=== PATIENT | female | born 1945 | race African-American/Black ===

== ENCOUNTER 2016-09-06 17:23 | Inpatient (IN) | payer MEDICARE, OTHER ==
[~2016-09-06] VITALS: Ht 152.4 cm; Wt 128.0 kg
[~2016-09-06 17:23] MED LIST: AMLODIPINE BESY10 MG ORAL; ATROVENT30 ML NASAL; BENADRYL50 MG ORAL; BENTYL10 MG ORAL; CALCIUM 1,0001 EAC1 PO; CARVEDILOL12.5 MG ORAL; FUROSEMIDE40 MG ORAL; KENALOG 0.1% CR15 GM APPLIC; LANTUS5 UNITS SUBQ; LOMOTIL TABLET1 EAC1 PO; NITROSTAT0.4 M1 SL; NOVOLOG100 UNIT/3 SUBQ; PRAVASTATIN SOD40 M1 ORAL; PREPARATION H1 EAC1 TP; PROBIOTIC1 EAC5 PO; PROCTOZONE-HC30 GM RC; PROMETHAZINE HCL MC; PROTONIX40 MG ORAL; QVAR7.3 GM INH; TYLENOL650 MG/20. ORAL
[2016-09-06 17:30] VITALS: BP 158/62
[2016-09-06 18:01] LABS: BASOPHILS % (AUTO) 3.1 % (0.0-2.0); EOSINOPHILS % (AUTO) 4.4 % (0.0-3.0); LYMPHOCYTES % (AUTO) 18.5 % (20.0-45.0); MEAN CORPUSCULAR HGB CONC 32.6 G/DL (32.0-36.0); MEAN CORPUSCULAR VOLUME 83 FL (80-99); MEAN PLATELET VOLUME 9.1 FL (6.5-10.1); MONOCYTES % (AUTO) 10.2 % (1.0-10.0); NEUTROPHILS % (AUTO) 63.7 % (45.0-75.0); PLATELET COUNT 238 K/UL (150-450); RED BLOOD COUNT 4.45 M/UL (4.20-5.40); RED CELL DISTRIBUTION WIDTH 15.7 % (11.6-14.8); WHITE BLOOD COUNT 6.7 K/UL (4.8-10.8)
[2016-09-06 18:41] VITALS: BP 147/55
[2016-09-06 19:04] LABS: TROPONIN I < 0.30 ng/mL (<=0.30)
[2016-09-06 19:05] LABS: ALANINE AMINOTRANSFERASE 57 U/L (3-33); ANION GAP 12 (5-15); ASPARTATE AMINO TRANSFERASE 88 U/L (5-40); CALCIUM 9.4 mg/dL (8.6-10.2); CARBON DIOXIDE 34 mEQ/L (20-30); CHLORIDE 95 mEQ/L (98-107); CREATININE 2.2 mg/dL (0.5-0.9); HEMOLYSIS 1; POTASSIUM 4.2 mEQ/L (3.4-4.9); SODIUM 141 mEQ/L (135-145); TOTAL PROTEIN 7.6 g/dL (6.6-8.7)
[2016-09-06 19:15] LABS: CKMB < 1.5 ng/mL (< 3.8)
[2016-09-06 20:45] VITALS: BP 107/48
[2016-09-06] MEDS ORDERED: Nitroglycerin 2% oint pkt TOPIC ONE (21:30)
--- NOTE | 2016-09-06 22:12 | Emergency Room Report ---
History of Present Illness General Chief Complaint: Dyspnea/Respdistress Source: Patient Present Illness HPI This patient complains of nausea and shortness of breath and a pressure sensation in her chest for the past day. The patient has a history of congestive heart failure. Allergies: Coded Allergies: ASPIRIN (Verified Allergy, Unknown, 09/13/08) CODEINE (Unverified Allergy, Unknown, 05/21/15) HYDROMORPHONE (Verified Allergy, Unknown, 05/21/15) MORPHINE (Unverified Allergy, Unknown, 05/21/15) PENICILLINS (Verified Allergy, Unknown, 09/13/08) Shrimp (Unverified Allergy, Unknown, 05/21/15) Uncoded Allergies: PENICILLIN (Allergy, Unknown, 05/21/15) Patient History Past Medical History: see triage record, DM, HTN, ME, CAD, CHF, COPD, GERD, CVA /TIA Social History: Denies: alcohol use, drug use, smoking Reviewed Nursing Documentation: PMH: Agreed, PSxH: Agreed Nursing Documentation-PMH Hx Hypertension: Yes Hx Asthma: Yes Hx COPD: Yes - sleep apnea Hx Diabetes: Yes Hx Cancer: No Hx Gastrointestinal Problems: Yes - gerd ,ibs,diverticulities Hx Dialysis: No Hx Neurological Problems: Yes - neuropathy,gout Hx Cerebrovascular Accident: No Hx Peripheral Neuropathy: Yes - diabetic neuropathy on bilateral legs and rectum Hx Headaches: Yes Hx Numbness: Yes - left foot Hx Weakness: Yes Hx Fatigue: Yes Review of Systems All Other Systems: negative except mentioned in HPI Physical Exam Vital Signs Date Time Temp Pulse Resp B/P Pulse Ox O2 Delivery O2 Flow Rate FiO2 09/06/16 17:28 97.9 62 24 100/60 92 Room Air 09/06/16 17:30 2.0 Sp02 EP Interpretation: reviewed, normal General Appearance: no apparent distress, alert, GCS 15, non-toxic Head: normocephalic, atraumatic Eyes: bilateral eye PERRL, bilateral eye normal inspection ENT: hearing grossly normal, normal pharynx, no angioedema, normal voice Neck: full range of motion, supple/symm/no masses Respiratory: chest non-tender, no respiratory distress, no retraction, no accessory muscle use, rales, speaking full sentences Cardiovascular #1: regular rate, rhythm Gastrointestinal: normal bowel sounds, non tender, soft, non-distended, no guarding, no rebound Rectal: deferred Musculoskeletal: back normal, gait/station normal, normal range of motion, non- tender Neurologic: alert, oriented x3, responsive, motor strength/tone normal, sensory intact, speech normal Psychiatric: judgement/insight normal, memory normal, mood/affect normal, no suicidal/homicidal ideation Skin: normal color, no rash, warm/dry, well hydrated Medical Decision Making Diagnostic Impression: Primary Impression: CHF (congestive heart failure) ER Course This patient presents with mild CHF exacerbation. She is an elevated BNP and pulmonary congestion on chest x-ray. She also has shortness of breath. She is given nitro paste to her chest wall and was given Lasix IV. She remained stable here in the emergency department. She is admitted for further evaluation and treatment. Labs Test 09/06/16 17:40 09/06/16 18:34 White Blood Count 6.7 K/UL (4.8-10.8) Red Blood Count 4.45 M/UL (4.20-5.40) Hemoglobin 12.0 G/DL (12.0-16.0) Hematocrit 36.9 % (37.0-47.0) Mean Corpuscular Volume 83 FL (80-99) Mean Corpuscular Hemoglobin 27.0 PG (27.0-31.0) Mean Corpuscular Hemoglobin Concent 32.6 G/DL (32.0-36.0) Red Cell Distribution Width 15.7 % (11.6-14.8) Platelet Count 238 K/UL (150-450) Mean Platelet Volume 9.1 FL (6.5-10.1) Neutrophils (%) (Auto) 63.7 % (45.0-75.0) Lymphocytes (%) (Auto) 18.5 % (20.0-45.0) Monocytes (%) (Auto) 10.2 % (1.0-10.0) Eosinophils (%) (Auto) 4.4 % (0.0-3.0) Basophils (%) (Auto) 3.1 % (0.0-2.0) Sodium Level 141 mEQ/L (135-145) Potassium Level 4.2 mEQ/L (3.4-4.9) Chloride Level 95 mEQ/L (98-107) Carbon Dioxide Level 34 mEQ/L (20-30) Anion Gap 12 (5-15) Blood Urea Nitrogen 35 mg/dL (7-23) Creatinine 2.2 mg/dL (0.5-0.9) Estimat Glomerular Filtration Rate mL/min (>60) Glucose Level 147 mg/dL (74-106) Calcium Level 9.4 mg/dL (8.6-10.2) Total Bilirubin 0.4 mg/dL (0.0-1.2) Aspartate Amino Transf (AST/SGOT) 88 U/L (5-40) Alanine Aminotransferase (ALT/SGPT) 57 U/L (3-33) Alkaline Phosphatase 189 U/L (35-104) Total Creatine Kinase 51 U/L (26-140) Creatine Kinase MB < 1.5 ng/mL (< 3.8) Creatine Kinase MB Relative Index Troponin I < 0.30 ng/mL (<=0.30) Pro-B-Type Natriuretic Peptide 2826 pg/mL (0-125) Total Protein 7.6 g/dL (6.6-8.7) Albumin 3.8 g/dL (3.5-5.2) Globulin 3.8 g/dL Albumin/Globulin Ratio 1.0 (1.0-2.7) EKG Diagnostic Results Rate: normal Rhythm: NSR ST Segments: no acute changes Rhythm Strip Diag. Results EP Interpretation: yes Rate: 60's Rhythm: NSR, no PVC's, no ectopy Chest X-Ray Diagnostic Results EP Interpretation: Yes Findings: no effusion, no pneumothorax, other Number of Views: 1 Other Impression Pulmonary congestion Last Vital Signs Date Time Temp Pulse Resp B/P Pulse Ox O2 Delivery O2 Flow Rate FiO2 09/06/16 21:33 163/98 09/06/16 20:45 98.4 63 22 97 Nasal Cannula 2.0 Disposition: ADMITTED INPATIENT Condition: Stable Referrals: NOT CHOSEN IPA/,REFERRING (PCP) ROBERT AU D.O. September 06, 2016 22:12
[2016-09-06 23:00] VITALS: BP 134/78
[2016-09-06] MEDS ORDERED: Miralax 17gm pkt ORAL PRN (23:15)
[2016-09-06] MEDS ORDERED: DuoNeb 0.5-3(2.5)mg/3ml neb HHN PRN (23:15)
[2016-09-07] VITALS (8 sets, daily range): BP systolic 106–142; BP diastolic 42–78
[2016-09-07 01:13] LABS: APPEARANCE,URINE CLEAR; KETONES,URINE NEGATIVE (NEGATIVE); LEUKOCYTE ESTERASE ,URINE 1+ (NEGATIVE); NITRITE,URINE NEGATIVE (NEGATIVE); PH,URINE 5 (4.5-8.0); PROTEIN,URINE 1+ (NEGATIVE); UROBILINOGEN,URINE 1 MG/DL (0.0-1.0)
[2016-09-07 01:29] LABS: BACTERIA,URINE FEW /HPF; RBC,URINE 0-2 /HPF (0 - 2); SQUAMOUS EPITHELIAL CELL,UR MANY /LPF (NONE/OCC); WBC,URINE 0-2 /HPF (0 - 2)
[2016-09-07] MEDS ORDERED: PACERONE200 MG ORAL (01:36)
[2016-09-07] MEDS ORDERED: MAPAP500 M2 PO (01:36)
[2016-09-07] MEDS ORDERED: LANTUS SOL100 UNIT/1 SUBQ (01:36)
[2016-09-07] MEDS ORDERED: MYCELEX TROCHE10 MG ORAL (01:36)
[2016-09-07] MEDS ORDERED: JANUVIA25 MG ORAL (02:52)
[2016-09-07] MEDS: NovoLOG Insulin Flexpen SUBQ SCH ×4 (05:58→21:51)
[2016-09-07 07:06] LABS: EOSINOPHILS % (AUTO) 4.4 % (0.0-3.0); LYMPHOCYTES % (AUTO) 12.9 % (20.0-45.0); MEAN CORPUSCULAR HEMOGLOBIN 25.5 PG (27.0-31.0); MEAN CORPUSCULAR HGB CONC 31.2 G/DL (32.0-36.0); MEAN CORPUSCULAR VOLUME 82 FL (80-99); MEAN PLATELET VOLUME 8.5 FL (6.5-10.1); MONOCYTES % (AUTO) 15.3 % (1.0-10.0); NEUTROPHILS % (AUTO) 64.4 % (45.0-75.0); PLATELET COUNT 227 K/UL (150-450); RED BLOOD COUNT 4.27 M/UL (4.20-5.40); RED CELL DISTRIBUTION WIDTH 15.9 % (11.6-14.8); WHITE BLOOD COUNT 5.8 K/UL (4.8-10.8)
[2016-09-07 07:28] LABS: ANION GAP 16 (5-15); CALCIUM 9.3 mg/dL (8.6-10.2); CARBON DIOXIDE 31 mEQ/L (20-30); CHLORIDE 95 mEQ/L (98-107); CREATININE 2.2 mg/dL (0.5-0.9); HEMOLYSIS 2; PHOSPHORUS 4.2 mg/dL (2.5-4.8); POTASSIUM 3.7 mEQ/L (3.4-4.9); SODIUM 142 mEQ/L (135-145); TROPONIN I < 0.30 ng/mL (<=0.30)
[2016-09-07] MEDS: Heparin 5000 units/ml inj SUBQ SCH ×2 (08:46→20:46)
[2016-09-07] MEDS: Carvedilol 12.5mg tab ORAL SCH ×2 (08:48→20:42)
--- NOTE | 2016-09-07 10:33 | Diagnostic Imaging Report ---
Indication: Shortness of breath Technique: XRAY CHEST 1 V Comparison: 10/25/15 Findings: There is poor penetration limiting evaluation. Cardiac silhouette is prominent. Sternotomy wires and a left chest pacemaker are present. There is no gross consolidation or pleural effusion. Degenerative changes of the spine are seen. Impression: Limited examination without obvious acute cardiopulmonary disease. Followup recommended.
--- NOTE | 2016-09-07 13:36 | History and Physical ---
History of Present Illness General Date patient seen: September 07, 2016 Reason for Hospitalization: Dyspnea/Respdistress Present Illness HPI 70 year old female with hx of CAD, CABG, ICD, diverticulosis BIBA with cc of nausea and shortness of breath and a pressure sensation in her chest for the past day. She is admitted to telemetry for further work up. Allergies: Coded Allergies: ASPIRIN (Verified Allergy, Unknown, 09/13/08) CODEINE (Unverified Allergy, Unknown, 05/21/15) HYDROMORPHONE (Verified Allergy, Unknown, 05/21/15) MORPHINE (Unverified Allergy, Unknown, 05/21/15) PENICILLINS (Verified Allergy, Unknown, 09/13/08) Shrimp (Unverified Allergy, Unknown, 05/21/15) Uncoded Allergies: PENICILLIN (Allergy, Unknown, 05/21/15) Medication History Scheduled Amiodarone Hcl* (Pacerone*), 200 MG ORAL DAILY, (Reported) Beclomethasone Dipropionate 40MCG Oral Inh (Qvar 40*), 2 PUFFS INH THREE TIMES A DAY, (Reported) Carvedilol* (Carvedilol*), 12.5 MG ORAL EVERY 12 HOURS, (Reported) Dicyclomine Hcl* (Bentyl*), 20 MG ORAL THREE TIMES A DAY, (Reported) Furosemide* (Lasix*), 20 MG ORAL DAILY, (Reported) Insulin Glargine (Lantus), 50 UNIT SUBQ BEDTIME, (Reported) Insulin Glargine (Lantus), 0 SUBQ BEDTIME, (Reported) Ipratropium [place] (Atrovent), 2 SPRAY NASAL THREE TIMES A DAY, (Reported) Pantoprazole* (Protonix*), 40 MG ORAL EVERY 12 HOURS, (Reported) Pravastatin Sod (Pravastatin Sod), 40 MG ORAL BEDTIME, (Reported) Promethazine Hcl (Promethazine Hcl), 5 GM MC THREE TIMES A DAY, (Reported) Sitagliptin* (Januvia*), 50 MG ORAL DAILY, (Reported) Scheduled PRN Acetaminophen (Acetaminophen), 500 MG ORAL Q6H PRN for Prn Headache/Temp > 101, (Reported) Acetaminophen (Mapap), 500 MG PO Q6HR PRN for For Pain, (Reported) Diphenhydramine HCl (Diphenhydramine HCl), 25 MG ORAL THREE TIMES A DAY PRN for Itching, (Reported) Insulin Aspart* (Novolog*), 10 SUBQ BEFORE MEALS PRN for Hyperglycemia, ( Reported) Nitroglycerin (Nitrostat), 0.4 MG SL Q5M X3 DOSES PRN for For Pain, (Reported) Miscellaneous Medications Calcium Carbonate/Vitamin D3 (Calcium 1,000 + D3 Caplet), 1 EACH PO, (Reported) Clotrimazole (Mycelex Caleb), 10 MG ORAL, (Reported) Diphenoxylate HCl/Atropine (Lomotil Tablet), 1 EACH PO, (Reported) Hydrocortisone (Proctozone-Hc), 30 GM RC, (Reported) Lactobacillus Combo No.11 (Probiotic), 1 EACH PO, (Reported) Triamcinolone Acet (Triamcinolone Acetonide), 15 GM APPLIC, (Reported) Witch Lulu (Preparation H), 1 EACH TP, (Reported) Patient History Healthcare decision maker Resuscitation status Full Code Advanced Directive on File Past Medical/Surgical History Past Medical/Surgical History: (1) Hx of CABG (2) CAD (coronary artery disease) (3) ICD (implantable cardioverter-defibrillator) in place (4) Morbid obesity Review of Systems Cardiovascular: Reports: chest pain All Other Systems: negative except mentioned in HPI Physical Exam General Appearance: WD/WN Lines, tubes and drains: peripheral HEENT: normocephalic, atraumatic Neck: non-tender, normal alignment Respiratory/Chest: chest wall non-tender, lungs clear Breasts: no masses Cardiovascular/Chest: normal peripheral pulses Abdomen: normal bowel sounds, non tender Genitourinary/Rectal: normal genital exam, normal rectal exam Extremities: normal range of motion Skin Exam: normal pigmentation Last 24 Hour Vital Signs Date Time Temp Pulse Resp B/P Pulse Ox O2 Delivery O2 Flow Rate FiO2 09/07/16 12:00 97.0 60 17 119/43 96 Room Air 09/07/16 08:48 60 106/45 09/07/16 08:00 98.2 60 18 139/54 93 Room Air 09/07/16 04:00 60 09/07/16 04:00 97.2 60 18 130/60 94 Room Air 09/07/16 02:29 97.2 68 20 142/65 97 Room Air 09/07/16 01:40 98.2 63 22 120/78 100 Room Air 09/07/16 01:40 63 22 120/78 100 Room Air 09/07/16 01:00 98.4 60 24 126/77 99 Room Air 09/06/16 23:00 98.2 62 24 134/78 99 Room Air 09/06/16 21:33 163/98 09/06/16 20:45 98.4 63 22 107/48 97 Nasal Cannula 2.0 09/06/16 18:41 64 18 147/55 96 Nasal Cannula 2.0 09/06/16 17:30 98.6 60 18 158/62 97 Nasal Cannula 2.0 09/06/16 17:28 97.9 62 24 100/60 92 Room Air Intake and Output 09/06/16 09/07/16 19:00 07:00 Intake Total 120 ml Output Total 550 ml Balance -430 ml Intake Oral 120 ml Output Urine Total 550 ml # Bowel Movements 1 Laboratory Tests Test 09/06/16 17:40 09/06/16 18:34 09/07/16 00:36 09/07/16 06:23 White Blood Count 6.7 K/UL (4.8-10.8) 5.8 K/UL (4.8-10.8) Red Blood Count 4.45 M/UL (4.20-5.40) 4.27 M/UL (4.20-5.40) Hemoglobin 12.0 G/DL (12.0-16.0) 10.9 G/DL (12.0-16.0) L Hematocrit 36.9 % (37.0-47.0) L 35.0 % (37.0-47.0) L Mean Corpuscular Volume 83 FL (80-99) 82 FL (80-99) Mean Corpuscular Hemoglobin 27.0 PG (27.0-31.0) 25.5 PG (27.0-31.0) L Mean Corpuscular Hemoglobin Concent 32.6 G/DL (32.0-36.0) 31.2 G/DL (32.0-36.0) L Red Cell Distribution Width 15.7 % (11.6-14.8) H 15.9 % (11.6-14.8) H Platelet Count 238 K/UL (150-450) 227 K/UL (150-450) Mean Platelet Volume 9.1 FL (6.5-10.1) 8.5 FL (6.5-10.1) Neutrophils (%) (Auto) 63.7 % (45.0-75.0) 64.4 % (45.0-75.0) Lymphocytes (%) (Auto) 18.5 % (20.0-45.0) L 12.9 % (20.0-45.0) L Monocytes (%) (Auto) 10.2 % (1.0-10.0) H 15.3 % (1.0-10.0) H Eosinophils (%) (Auto) 4.4 % (0.0-3.0) H 4.4 % (0.0-3.0) H Basophils (%) (Auto) 3.1 % (0.0-2.0) H 3.0 % (0.0-2.0) H Sodium Level 141 mEQ/L (135-145) 142 mEQ/L (135-145) Potassium Level 4.2 mEQ/L (3.4-4.9) 3.7 mEQ/L (3.4-4.9) Chloride Level 95 mEQ/L (98-107) L 95 mEQ/L (98-107) L Carbon Dioxide Level 34 mEQ/L (20-30) H 31 mEQ/L (20-30) H Anion Gap 12 (5-15) 16 (5-15) H Blood Urea Nitrogen 35 mg/dL (7-23) H 36 mg/dL (7-23) H Creatinine 2.2 mg/dL (0.5-0.9) H 2.2 mg/dL (0.5-0.9) H Estimat Glomerular Filtration Rate mL/min (>60) mL/min (>60) Glucose Level 147 mg/dL (74-106) H 236 mg/dL (74-106) H Calcium Level 9.4 mg/dL (8.6-10.2) 9.3 mg/dL (8.6-10.2) Total Bilirubin 0.4 mg/dL (0.0-1.2) Aspartate Amino Transf (AST/SGOT) 88 U/L (5-40) H Alanine Aminotransferase (ALT/SGPT) 57 U/L (3-33) H Alkaline Phosphatase 189 U/L (35-104) H Total Creatine Kinase 51 U/L (26-140) Creatine Kinase MB < 1.5 ng/mL (< 3.8) Creatine Kinase MB Relative Index Troponin I < 0.30 ng/mL (<=0.30) < 0.30 ng/mL (<=0.30) Pro-B-Type Natriuretic Peptide 2826 pg/mL (0-125) H Total Protein 7.6 g/dL (6.6-8.7) Albumin 3.8 g/dL (3.5-5.2) 3.5 g/dL (3.5-5.2) Globulin 3.8 g/dL Albumin/Globulin Ratio 1.0 (1.0-2.7) Urine Color Yellow Urine Appearance Clear Urine pH 5 (4.5-8.0) Urine Specific [place] 1.010 (1.005-1.035) Urine Protein 1+ (NEGATIVE) H Urine Glucose (UA) Negative (NEGATIVE) Urine Ketones Negative (NEGATIVE) Urine Occult Blood Negative (NEGATIVE) Urine Nitrite Negative (NEGATIVE) Urine Bilirubin Negative (NEGATIVE) Urine Urobilinogen 1 MG/DL (0.0-1.0) H Urine Leukocyte Esterase 1+ (NEGATIVE) H Urine RBC 0-2 /HPF (0 - 2) Urine WBC 0-2 /HPF (0 - 2) Urine Squamous Epithelial Cells Many /LPF (NONE/OCC) H Urine Bacteria Few /HPF (NONE) Phosphorus Level 4.2 mg/dL (2.5-4.8) Height (Feet): 5 Height (Inches): 6.00 Weight (Pounds): 282 Medications Current Medications Medications (Trade) Dose Ordered Sig/Mark Anthony Route PRN Reason Start Time Stop Time Status Last Admin Dose Admin Acetaminophen (Tylenol) 650 mg Q4H PRN ORAL Fever 09/06/16 23:15 10/06/16 23:14 09/07/16 05:54 Albuterol/ Ipratropium (DuoNeb 0.5-3(2.5)mg/3ml) 3 ml EVERY 4 HOURS PRN HHN Shortness of Breath 09/06/16 23:15 09/11/16 23:14 Carvedilol (Coreg) 12.5 mg EVERY 12 HOURS ORAL 5/13/17 09:00 10/07/16 08:59 Dextrose (Dextrose 50%) STAT PRN IV Hypoglycemia 09/06/16 23:15 10/06/16 23:14 Furosemide (Lasix) 40 mg EVERY 8 HOURS IV 09/07/16 06:00 10/07/16 05:59 09/07/16 05:53 Heparin Sodium (Porcine) (Heparin 5000 units/ml) 5,000 units EVERY 12 HOURS SUBQ 09/07/16 09:00 10/07/16 08:59 09/07/16 08:46 Insulin Aspart (NovoLOG) BEFORE MEALS AND HS SUBQ 09/07/16 06:30 10/07/16 06:29 09/07/16 12:35 Methadone HCl (Methadone HCl) 5 mg Q8H PRN ORAL For Pain 09/07/16 07:45 09/14/16 07:44 Ondansetron HCl (Zofran) 4 mg Q6H PRN IVP Nausea & Vomiting 09/06/16 23:15 10/06/16 23:14 Pantoprazole (Protonix) 40 mg EVERY 12 HOURS ORAL 09/07/16 09:00 10/07/16 08:59 09/07/16 08:46 Polyethylene Glycol (Miralax) 17 gm DAILYPRN PRN ORAL Constipation 09/06/16 23:15 10/06/16 23:14 Pravastatin Sodium (Pravachol) 40 mg BEDTIME ORAL 09/07/16 21:00 10/07/16 20:59 Temazepam (Restoril) 15 mg HSPRN PRN ORAL Insomnia 09/06/16 23:15 09/13/16 23:14 Assessment/Plan Problem List: (1) ACS (acute coronary syndrome) ICD Codes: I24.9 - Acute ischemic heart disease, unspecified SNOMED: 464559158 (2) Costochondritis ICD Codes: M94.0 - Chondrocostal junction syndrome [[place]] SNOMED: 90500901 (3) Chronic GERD ICD Codes: K21.9 - Gastro-esophageal reflux disease without esophagitis SNOMED: 27485796, 611880299 (4) Hx of CABG ICD Codes: Z95.1 - Presence of aortocoronary bypass graft SNOMED: 945211113, 578042602 (5) ICD (implantable cardioverter-defibrillator) in place ICD Codes: Z95.810 - Presence of automatic (implantable) cardiac defibrillator SNOMED: 282718246, 582021457 (6) CAD (coronary artery disease) ICD Codes: I25.10 - Atherosclerotic heart disease of [place] coronary artery without angina pectoris SNOMED: 65327114 (7) Morbid obesity ICD Codes: E66.01 - Morbid (severe) obesity due to excess calories SNOMED: 018678581 (8) CHF (congestive heart failure) ICD Codes: I50.9 - Heart failure, unspecified SNOMED: 30729444 Assessment/Plan serial ekg, troponin echo GI evaluation symptomatic treatment RAMÓN VALE September 07, 2016 13:36
--- NOTE | 2016-09-07 16:20 | Cardiology Progress Note ---
Subjective Subjective [id number] Objective Last 24 Hour Vital Signs Date Time Temp Pulse Resp B/P Pulse Ox O2 Delivery O2 Flow Rate FiO2 09/07/16 12:00 97.0 60 17 119/43 96 Room Air 09/07/16 08:48 60 106/45 09/07/16 08:00 98.2 60 18 139/54 93 Room Air 09/07/16 04:00 60 09/07/16 04:00 97.2 60 18 130/60 94 Room Air 09/07/16 02:29 97.2 68 20 142/65 97 Room Air 09/07/16 01:40 98.2 63 22 120/78 100 Room Air 09/07/16 01:40 63 22 120/78 100 Room Air 09/07/16 01:00 98.4 60 24 126/77 99 Room Air 09/06/16 23:00 98.2 62 24 134/78 99 Room Air 09/06/16 21:33 163/98 09/06/16 20:45 98.4 63 22 107/48 97 Nasal Cannula 2.0 09/06/16 18:41 64 18 147/55 96 Nasal Cannula 2.0 09/06/16 17:30 98.6 60 18 158/62 97 Nasal Cannula 2.0 09/06/16 17:28 97.9 62 24 100/60 92 Room Air Intake and Output 09/06/16 09/07/16 19:00 07:00 Intake Total 120 ml Output Total 550 ml Balance -430 ml Intake Oral 120 ml Output Urine Total 550 ml # Bowel Movements 1 Laboratory Tests Test 09/06/16 17:40 09/06/16 18:34 09/07/16 00:36 09/07/16 06:23 White Blood Count 6.7 K/UL (4.8-10.8) 5.8 K/UL (4.8-10.8) Red Blood Count 4.45 M/UL (4.20-5.40) 4.27 M/UL (4.20-5.40) Hemoglobin 12.0 G/DL (12.0-16.0) 10.9 G/DL (12.0-16.0) L Hematocrit 36.9 % (37.0-47.0) L 35.0 % (37.0-47.0) L Mean Corpuscular Volume 83 FL (80-99) 82 FL (80-99) Mean Corpuscular Hemoglobin 27.0 PG (27.0-31.0) 25.5 PG (27.0-31.0) L Mean Corpuscular Hemoglobin Concent 32.6 G/DL (32.0-36.0) 31.2 G/DL (32.0-36.0) L Red Cell Distribution Width 15.7 % (11.6-14.8) H 15.9 % (11.6-14.8) H Platelet Count 238 K/UL (150-450) 227 K/UL (150-450) Mean Platelet Volume 9.1 FL (6.5-10.1) 8.5 FL (6.5-10.1) Neutrophils (%) (Auto) 63.7 % (45.0-75.0) 64.4 % (45.0-75.0) Lymphocytes (%) (Auto) 18.5 % (20.0-45.0) L 12.9 % (20.0-45.0) L Monocytes (%) (Auto) 10.2 % (1.0-10.0) H 15.3 % (1.0-10.0) H Eosinophils (%) (Auto) 4.4 % (0.0-3.0) H 4.4 % (0.0-3.0) H Basophils (%) (Auto) 3.1 % (0.0-2.0) H 3.0 % (0.0-2.0) H Sodium Level 141 mEQ/L (135-145) 142 mEQ/L (135-145) Potassium Level 4.2 mEQ/L (3.4-4.9) 3.7 mEQ/L (3.4-4.9) Chloride Level 95 mEQ/L (98-107) L 95 mEQ/L (98-107) L Carbon Dioxide Level 34 mEQ/L (20-30) H 31 mEQ/L (20-30) H Anion Gap 12 (5-15) 16 (5-15) H Blood Urea Nitrogen 35 mg/dL (7-23) H 36 mg/dL (7-23) H Creatinine 2.2 mg/dL (0.5-0.9) H 2.2 mg/dL (0.5-0.9) H Estimat Glomerular Filtration Rate mL/min (>60) mL/min (>60) Glucose Level 147 mg/dL (74-106) H 236 mg/dL (74-106) H Calcium Level 9.4 mg/dL (8.6-10.2) 9.3 mg/dL (8.6-10.2) Total Bilirubin 0.4 mg/dL (0.0-1.2) Aspartate Amino Transf (AST/SGOT) 88 U/L (5-40) H Alanine Aminotransferase (ALT/SGPT) 57 U/L (3-33) H Alkaline Phosphatase 189 U/L (35-104) H Total Creatine Kinase 51 U/L (26-140) Creatine Kinase MB < 1.5 ng/mL (< 3.8) Creatine Kinase MB Relative Index Troponin I < 0.30 ng/mL (<=0.30) < 0.30 ng/mL (<=0.30) Pro-B-Type Natriuretic Peptide 2826 pg/mL (0-125) H Total Protein 7.6 g/dL (6.6-8.7) Albumin 3.8 g/dL (3.5-5.2) 3.5 g/dL (3.5-5.2) Globulin 3.8 g/dL Albumin/Globulin Ratio 1.0 (1.0-2.7) Urine Color Yellow Urine Appearance Clear Urine pH 5 (4.5-8.0) Urine Specific [place] 1.010 (1.005-1.035) Urine Protein 1+ (NEGATIVE) H Urine Glucose (UA) Negative (NEGATIVE) Urine Ketones Negative (NEGATIVE) Urine Occult Blood Negative (NEGATIVE) Urine Nitrite Negative (NEGATIVE) Urine Bilirubin Negative (NEGATIVE) Urine Urobilinogen 1 MG/DL (0.0-1.0) H Urine Leukocyte Esterase 1+ (NEGATIVE) H Urine RBC 0-2 /HPF (0 - 2) Urine WBC 0-2 /HPF (0 - 2) Urine Squamous Epithelial Cells Many /LPF (NONE/OCC) H Urine Bacteria Few /HPF (NONE) Phosphorus Level 4.2 mg/dL (2.5-4.8) EZE HEATON September 07, 2016 16:19
[2016-09-08] VITALS: BP 132/46
--- NOTE | 2016-09-08 02:59 | Consultation ---
DATE OF CONSULTATION: 09/07/2016 CARDIOLOGY CONSULTATION IDENTIFICATION DATA: This is a 70-year-old female. REASON FOR ADMISSION: Chest pain and shortness of breath. HISTORY OF PRESENT ILLNESS: History of present illness was taken from the patient. She is a pleasant black female with a history of coronary artery bypass graft in 2009 and then she valve was replaced and repaired in 2011 at [facility]. She usually goes there. She was there in August. She said she had fluid in her lungs, but also she was bleeding from her rectum and so she was transfused. She said they did some sort of cardiac test on her. She said that she does not have any chest pain, but she has ongoing weird feeling in her chest. PAST MEDICAL HISTORY: Also significant for hypertension, hyperlipidemia, and COPD. She has a history of hiatal hernia, diverticulitis, arthritis and rectal bleeding. MEDICATIONS: Reviewed and reconciled. ALLERGIES: She is allergic to aspirin, codeine, hydromorphone, morphine and penicillin. HABITS: She quit smoking in 1995. There is no history of alcohol or drug abuse. SOCIAL HISTORY: She lives at home. REVIEW OF SYSTEMS: Her review of systems was done in detail. There is no fever or chills. No dysuria. No diarrhea. No vomiting. PHYSICAL EXAMINATION: GENERAL: The patient is an elderly female, resting in bed. VITAL SIGNS: Blood pressure 130/70, heart rate is 60, oxygen saturation is on room air 92%, and temperature is normal. HEENT: PERRLA. EOMI. NECK: Supple. Jugular venous pressure is unable to evaluate due to the patient's configuration of her neck. She is morbidly obese. LUNGS: She has scattered rales bilaterally. There is no wheezing. There is a midsternal scar, which is well-healed. HEART: Regular. PMI is not palpable. There is a systolic ejection murmur 2/6, nonradiating to carotids. Carotid upstroke is normal. BREASTS: No significant masses. ABDOMEN: Very obese. Distended. Tender in epigastric area. EXTREMITIES: Lower extremities with trace edema. LABORATORY DATA: Her EKG shows sinus rhythm, sinus bradycardia with left anterior hemiblock. Troponin is negative. IMPRESSION AND RECOMMENDATION: This patient clinically looks stable, although she has a history of multiple admissions. She does not seem to me clinically to be in overt heart failure. I think the best thing will be to get the records from [facility] on Friday to see which tests recently were done, she was there 2 months ago and she said she had some workup done at that time so maybe that will be sufficient to compare and see if there is any additional workup has to be here. I am going to decrease her Lasix dose to once a day. Thank you for the consult. Sujata Parkinson M.D. DR: JEOVANY JOB#: [id number] CC:
[2016-09-08 04:00] VITALS: BP 137/58
[2016-09-08] MEDS: NovoLOG Insulin Flexpen SUBQ SCH ×4 (06:24→21:22)
[2016-09-08 08:00] VITALS: BP 132/62
[2016-09-08 08:08] LABS: BASOPHILS % (AUTO) 2.7 % (0.0-2.0); EOSINOPHILS % (AUTO) 5.8 % (0.0-3.0); LYMPHOCYTES % (AUTO) 15.4 % (20.0-45.0); MEAN CORPUSCULAR HEMOGLOBIN 24.8 PG (27.0-31.0); MEAN CORPUSCULAR HGB CONC 30.5 G/DL (32.0-36.0); MEAN CORPUSCULAR VOLUME 81 FL (80-99); MEAN PLATELET VOLUME 8.2 FL (6.5-10.1); MONOCYTES % (AUTO) 18.9 % (1.0-10.0); NEUTROPHILS % (AUTO) 57.2 % (45.0-75.0); PLATELET COUNT 204 K/UL (150-450); RED BLOOD COUNT 4.31 M/UL (4.20-5.40); RED CELL DISTRIBUTION WIDTH 15.4 % (11.6-14.8); WHITE BLOOD COUNT 5.4 K/UL (4.8-10.8)
[2016-09-08 08:29] LABS: ALANINE AMINOTRANSFERASE 56 U/L (3-33); ALBUMIN/GLOBULIN RATIO 0.9 (1.0-2.7); ANION GAP 15 (5-15); ASPARTATE AMINO TRANSFERASE 83 U/L (5-40); CALCIUM 9.3 mg/dL (8.6-10.2); CARBON DIOXIDE 31 mEQ/L (20-30); CHLORIDE 96 mEQ/L (98-107); HEMOLYSIS 2; POTASSIUM 3.7 mEQ/L (3.4-4.9); SODIUM 142 mEQ/L (135-145); TOTAL PROTEIN 7.3 g/dL (6.6-8.7)
[2016-09-08] MEDS: Carvedilol 12.5mg tab ORAL SCH ×2 (08:47→21:20)
[2016-09-08] MEDS: Heparin 5000 units/ml inj SUBQ SCH ×2 (08:53→21:21)
[2016-09-08 12:00] VITALS: BP 144/59
--- NOTE | 2016-09-08 15:13 | Pulmonology Progress Note ---
Assessment/Plan Problems: (1) ACS (acute coronary syndrome) (2) Costochondritis (3) Chronic GERD (4) Hx of CABG (5) ICD (implantable cardioverter-defibrillator) in place (6) CAD (coronary artery disease) (7) Morbid obesity (8) CHF (congestive heart failure) Assessment/Plan anemia w/u Cardio consult appreciated Echo reviewed cardiac studies pending check stool of OB Subjective ROS Limited/Unobtainable: No Constitutional: Reports: no symptoms HEENT: Repors: no symptoms Respiratory: Reports: no symptoms Allergies: Coded Allergies: ASPIRIN (Verified Allergy, Unknown, 09/13/08) CODEINE (Unverified Allergy, Unknown, 05/21/15) HYDROMORPHONE (Verified Allergy, Unknown, 05/21/15) MORPHINE (Unverified Allergy, Unknown, 05/21/15) PENICILLINS (Verified Allergy, Unknown, 09/13/08) Shrimp (Unverified Allergy, Unknown, 05/21/15) Uncoded Allergies: PENICILLIN (Allergy, Unknown, 05/21/15) Objective Last 24 Hour Vital Signs Date Time Temp Pulse Resp B/P Pulse Ox O2 Delivery O2 Flow Rate FiO2 09/08/16 12:00 60 19 144/59 97 Room Air 09/08/16 08:47 65 132/62 09/08/16 08:00 61 09/08/16 08:00 97.0 65 18 132/62 91 Room Air 09/08/16 05:51 76 09/08/16 04:00 97.7 63 20 137/58 94 Room Air 09/08/16 00:44 64 09/08/16 00:00 97.7 66 20 132/46 93 Room Air 09/07/16 20:42 68 106/42 09/07/16 20:20 68 09/07/16 20:00 97.1 70 20 106/42 93 Room Air 09/07/16 16:00 98.0 72 17 130/62 97 Room Air 09/07/16 16:00 66 Intake and Output 09/07/16 09/08/16 19:00 07:00 Intake Total 640 ml Balance 640 ml Intake Oral 640 ml General Appearance: WD/WN HEENT: normocephalic, atraumatic Respiratory/Chest: chest wall non-tender Breasts: no masses Cardiovascular: normal peripheral pulses Abdomen: normal bowel sounds Genitourinary: normal external genitalia Extremities: no cyanosis 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 Lymphatic: no neck adenopathy Laboratory Tests 09/08/16 06:30: White Blood Count 5.4, Red Blood Count 4.31, Hemoglobin 10.7L, Hematocrit 35.1L , Mean Corpuscular Volume 81, Mean Corpuscular Hemoglobin 24.8L, Mean Corpuscular Hemoglobin Concent 30.5L, Red Cell Distribution Width 15.4H, Platelet Count 204, Mean Platelet Volume 8.2, Neutrophils (%) (Auto) 57.2, Lymphocytes (%) (Auto) 15.4L, Monocytes (%) (Auto) 18.9H, Eosinophils (%) (Auto ) 5.8H, Basophils (%) (Auto) 2.7H, Sodium Level 142, Potassium Level 3.7, Chloride Level 96L, Carbon Dioxide Level 31H, Anion Gap 15, Blood Urea Nitrogen 35H, Creatinine 2.0H, Estimat Glomerular Filtration Rate , Glucose Level 198H, Calcium Level 9.3, Total Bilirubin 0.5, Aspartate Amino Transf (AST/SGOT) 83H, Alanine Aminotransferase (ALT/SGPT) 56H, Alkaline Phosphatase 182H, Pro-B-Type Natriuretic Peptide 1297H, Total Protein 7.3, Albumin 3.5, Globulin 3.8, Albumin /Globulin Ratio 0.9L 09/08/16 12:30: Stool Occult Blood [Pending] Current Medications Medications (Trade) Dose Ordered Sig/Mark Anthony Route PRN Reason Start Time Stop Time Status Last Admin Dose Admin Acetaminophen (Tylenol) 650 mg Q4H PRN ORAL Fever 09/06/16 23:15 10/06/16 23:14 09/08/16 01:31 Albuterol/ Ipratropium (DuoNeb 0.5-3(2.5)mg/3ml) 3 ml EVERY 4 HOURS PRN HHN Shortness of Breath 09/06/16 23:15 09/11/16 23:14 Carvedilol (Coreg) 12.5 mg EVERY 12 HOURS ORAL 09/07/16 09:00 10/07/16 08:59 09/08/16 08:47 Dextrose (Dextrose 50%) STAT PRN IV Hypoglycemia 09/06/16 23:15 10/06/16 23:14 Heparin Sodium (Porcine) (Heparin 5000 units/ml) 5,000 units EVERY 12 HOURS SUBQ 09/07/16 09:00 10/07/16 08:59 09/08/16 08:53 Insulin Aspart (NovoLOG) BEFORE MEALS AND HS SUBQ 09/07/16 06:30 10/07/16 06:29 09/08/16 11:48 Methadone HCl (Methadone HCl) 5 mg Q8H PRN ORAL For Pain 09/07/16 07:45 09/14/16 07:44 Ondansetron HCl (Zofran) 4 mg Q6H PRN IVP Nausea & Vomiting 09/06/16 23:15 10/06/16 23:14 Pantoprazole (Protonix) 40 mg EVERY 12 HOURS ORAL 09/07/16 09:00 10/07/16 08:59 09/08/16 08:47 Polyethylene Glycol (Miralax) 17 gm DAILYPRN PRN ORAL Constipation 09/06/16 23:15 10/06/16 23:14 09/07/16 22:08 Pravastatin Sodium (Pravachol) 40 mg BEDTIME ORAL 09/07/16 21:00 10/07/16 20:59 09/07/16 20:42 Temazepam (Restoril) 15 mg HSPRN PRN ORAL Insomnia 09/06/16 23:15 09/13/16 23:14 09/07/16 22:08 RAMÓN VALE September 08, 2016 15:13
[2016-09-08] MEDS ORDERED: Promethazine/Codeine 5ml UD ORAL PRN (15:15)
--- NOTE | 2016-09-08 15:40 | Cardiology Progress Note ---
Assessment/Plan Assessment/Plan noted labs will tomorrow request information from [facility] Subjective Subjective feeling OK less dyspnea no chest discomfort asking for pain medications Objective Last 24 Hour Vital Signs Date Time Temp Pulse Resp B/P Pulse Ox O2 Delivery O2 Flow Rate FiO2 09/08/16 12:00 60 19 144/59 97 Room Air 09/08/16 08:47 65 132/62 09/08/16 08:00 61 09/08/16 08:00 97.0 65 18 132/62 91 Room Air 09/08/16 05:51 76 09/08/16 04:00 97.7 63 20 137/58 94 Room Air 09/08/16 00:44 64 09/08/16 00:00 97.7 66 20 132/46 93 Room Air 09/07/16 20:42 68 106/42 09/07/16 20:20 68 09/07/16 20:00 97.1 70 20 106/42 93 Room Air 09/07/16 16:00 98.0 72 17 130/62 97 Room Air 09/07/16 16:00 66 General Appearance: no apparent distress, other - morbidly obese EENT: PERRL/EOMI Neck: supple Rhythm: SB Cardiovascular: normal rate, regular rhythm Respiratory/Chest: crackles/rales Abdomen: distended, tender Extremities: no swelling Intake and Output 09/07/16 09/08/16 19:00 07:00 Intake Total 640 ml Balance 640 ml Intake Oral 640 ml Laboratory Tests Test 09/08/16 06:30 09/08/16 12:30 White Blood Count 5.4 K/UL (4.8-10.8) Red Blood Count 4.31 M/UL (4.20-5.40) Hemoglobin 10.7 G/DL (12.0-16.0) L Hematocrit 35.1 % (37.0-47.0) L Mean Corpuscular Volume 81 FL (80-99) Mean Corpuscular Hemoglobin 24.8 PG (27.0-31.0) L Mean Corpuscular Hemoglobin Concent 30.5 G/DL (32.0-36.0) L Red Cell Distribution Width 15.4 % (11.6-14.8) H Platelet Count 204 K/UL (150-450) Mean Platelet Volume 8.2 FL (6.5-10.1) Neutrophils (%) (Auto) 57.2 % (45.0-75.0) Lymphocytes (%) (Auto) 15.4 % (20.0-45.0) L Monocytes (%) (Auto) 18.9 % (1.0-10.0) H Eosinophils (%) (Auto) 5.8 % (0.0-3.0) H Basophils (%) (Auto) 2.7 % (0.0-2.0) H Sodium Level 142 mEQ/L (135-145) Potassium Level 3.7 mEQ/L (3.4-4.9) Chloride Level 96 mEQ/L (98-107) L Carbon Dioxide Level 31 mEQ/L (20-30) H Anion Gap 15 (5-15) Blood Urea Nitrogen 35 mg/dL (7-23) H Creatinine 2.0 mg/dL (0.5-0.9) H Estimat Glomerular Filtration Rate mL/min (>60) Glucose Level 198 mg/dL (74-106) H Calcium Level 9.3 mg/dL (8.6-10.2) Total Bilirubin 0.5 mg/dL (0.0-1.2) Aspartate Amino Transf (AST/SGOT) 83 U/L (5-40) H Alanine Aminotransferase (ALT/SGPT) 56 U/L (3-33) H Alkaline Phosphatase 182 U/L (35-104) H Pro-B-Type Natriuretic Peptide 1297 pg/mL (0-125) H Total Protein 7.3 g/dL (6.6-8.7) Albumin 3.5 g/dL (3.5-5.2) Globulin 3.8 g/dL Albumin/Globulin Ratio 0.9 (1.0-2.7) L Stool Occult Blood Pending EZE HEATON September 08, 2016 15:40
[2016-09-08 16:00] VITALS: BP 142/74
--- NOTE | 2016-09-08 17:39 | Consultation ---
DATE OF CONSULTATION: 09/08/2016 CHIEF COMPLAINT: Anemia, abnormal liver function tests, and nausea. HISTORY OF PRESENT ILLNESS: This is a 70-year-old female with multiple medical problems with history of morbid obesity, sleep apnea, congestive heart failure, coronary artery disease, CABG in the past, valvular heart surgery in the past, history of gastroesophageal reflux disease, IBS, and diverticulosis, admitted to the hospital with complaint of congestive heart failure exacerbation and also some nausea. The patient denies any obvious gastrointestinal bleeding. No dysphagia. No odynophagia. No melena or hematochezia. PAST MEDICAL HISTORY: 1. Cataracts. 2. History of coronary artery disease, triple bypass in 2009, also valvular surgery in 2011, and internal defibrillator placement. 3. History of gastroesophageal reflux disease. 4. IBS. 5. Diverticulosis. 6. Hypertension. 7. Diabetes. PAST SURGICAL HISTORY: The patient had prior bilateral cataract surgery. The patient had coronary artery bypass graft and heart valve surgery. MEDICATIONS: Please see medication reconciliation list. ALLERGIES: Aspirin, codeine, hydromorphone, penicillin, and shrimps. SOCIAL HISTORY: The patient denies any tobacco, alcohol, or drug abuse. FAMILY HISTORY: Noncontributory. REVIEW OF SYSTEMS: A 10-point review of systems was performed and pertinent positives in history of present illness. PHYSICAL EXAMINATION: GENERAL: A morbidly obese female. VITAL SIGNS: Temperature 97.7 degrees, pulse 66, respirations 20, and blood pressure 137/58. HEENT: Normocephalic and atraumatic. Sclerae anicteric. NECK: Supple. No evidence of lymphadenopathy. CARDIOVASCULAR: Regular rhythm. Plus S1 and S2. LUNGS: Decreased breath sounds bilaterally diffusely. ABDOMEN: Soft and nontender. No rebound. No guarding. No peritoneal sign. EXTREMITIES: No cyanosis. No clubbing. No edema. LABORATORY DATA: White count 5.4, hemoglobin 10.7, hematocrit 35, and platelet count is 204,000. Chem-7, BUN is 36 and creatinine is 2.2. AST of 88, ALT of 67, and alkaline phosphatase of 189. ASSESSMENT: 1. Anemia, normocytic. 2. Renal insufficiency. 3. Congestive heart failure. 4. Abnormal liver function tests. 5. Diabetes. PLAN: In terms of anemia, we will do anemia workup. At this time, anemia most probably secondary to chronic disease with most probably renal insufficiency. It is normocytic in nature. We will send the stool for occult blood and do anemia workup and make further recommendation as the above results are back. In terms of abnormal liver function tests, most probably is related to fatty infiltration of the liver from obesity versus if the patient has right-sided heart failure with hepatic congestion, of course, acute hepatitis panel cannot be ruled out. Plan will be to send hepatitis panel and get abdominal ultrasound and repeat liver function tests for tomorrow. Manuelito Beckham M.D. DR: MANUELA JOB#: [id number] CC:
[2016-09-08] MEDS ORDERED: Promethazine Plain 6.25mg/5ml ORAL PRN (18:30)
--- NOTE | 2016-09-08 19:23 | Cardiology Report ---
APPROVED REPORT EXAM: Two-dimensional and M-mode echocardiogram with Doppler and color Doppler. INDICATION Left ventricular function M-Mode DIMENSIONS IVSd0.8 (0.7-1.1cm)Left Atrium (MM)4.9 (1.6-4.0cm) LVDd5.8 (3.5-5.6cm)Aortic Root2.8 (2.0-3.7cm) PWd1.0 (0.7-1.1cm)Aortic Cusp Exc.1.8 (1.5-2.0cm) IVSs1.0 cm LVDs4.4 (2.5-4.0cm) PWs1.2 cm Technically difficult study due to poor acoustic windows. Normal left ventricular chamber size, systolic function and wall motion. Left ventricular ejection fraction estimated to be 55-60%. Mild left ventricular hypertrophy. No evidence of pericardial fat or effusion. Right cardiac chamber sizes are within normal limits. Mild left atrial enlargement by 2D. Focal aortic valve sclerosis with adequate cusp excursion Mitral valve prosthesis is seen and appears to move appropriately. Mitral annulus and aortic root calcification. Pulmonic valve not well visualized. Normal tricuspid valve structure. IVC is normal in size with physiologic collapse. Probable pacemaker wire present in the right side chambers. A color flow and spectral Doppler study was performed and revealed: No aortic regurgitation. Trace mitral regurgitation. Mitral P1/2 time of 87 m/s is compatible with a mitral valve area of 2.5cm2 Peak mitral valve diastolic gradient of 10mmHg and a mean gradient of 4 mmHg No tricuspid regurgitation.
[2016-09-08 20:00] VITALS: BP 137/55
--- NOTE | 2016-09-08 20:04 | Cardiology Report ---
APPROVED REPORT EKG Measurement Heart [id number] Normal sinus rhythm Left axis deviation Left ventricular hypertrophy with QRS widening Abnormal ECG
[2016-09-09] VITALS (7 sets, daily range): BP systolic 125–152; BP diastolic 57–68
[2016-09-09] MEDS ORDERED: Promethazine Plain 6.25mg/5ml ORAL PRN ×2 (01:00→21:00)
[2016-09-09] MEDS: NovoLOG Insulin Flexpen SUBQ SCH ×4 (06:30→21:40)
[2016-09-09 07:15] LABS: MEAN CORPUSCULAR HEMOGLOBIN 25.3 PG (27.0-31.0); MEAN CORPUSCULAR HGB CONC 31.1 G/DL (32.0-36.0); MEAN CORPUSCULAR VOLUME 82 FL (80-99); MEAN PLATELET VOLUME 8.6 FL (6.5-10.1); PLATELET COUNT 217 K/UL (150-450); RED BLOOD COUNT 4.12 M/UL (4.20-5.40); RED CELL DISTRIBUTION WIDTH 15.5 % (11.6-14.8)
[2016-09-09 07:16] LABS: TROPONIN I < 0.30 ng/mL (<=0.30)
[2016-09-09 07:31] LABS: ALANINE AMINOTRANSFERASE 46 U/L (3-33); ALBUMIN/GLOBULIN RATIO 0.9 (1.0-2.7); ANION GAP 17 (5-15); ASPARTATE AMINO TRANSFERASE 63 U/L (5-40); CALCIUM 9.5 mg/dL (8.6-10.2); CARBON DIOXIDE 29 mEQ/L (20-30); CHLORIDE 96 mEQ/L (98-107); CREATININE 1.8 mg/dL (0.5-0.9); SODIUM 142 mEQ/L (135-145); TOTAL PROTEIN 7.1 g/dL (6.6-8.7)
[2016-09-09 07:43] LABS: INR 1.1 (0.9-1.1); PROTHROMBIN TIME 10.8 SEC (9.30-11.50)
[2016-09-09 07:47] LABS: HEMOLYSIS 3; IRON 29 ug/dL (37-145); TOTAL IRON BINDING CAPACITY 378 ug/dL (250-400)
--- NOTE | 2016-09-09 08:47 | Diagnostic Imaging Report ---
Indication: Dyspnea Technique: XRAY CHEST 1 V Comparison: 09/06/16 Findings: Cardiomediastinal silhouette is stable. Sternotomy wires and left chest pacemaker are again noted. Mild central pulmonary vascular congestion is noted. There is no consolidation or pleural effusion. Impression: Mild central pulmonary vascular congestion.
[2016-09-09 09:14] LABS: ERYTHROCYTE SEDIMENTATION RATE 58 MM/HR (0-30); PATH BLOOD SMEAR/OMC SENT TO PATHOLOGIST
[2016-09-09 09:18] LABS: ANISOCYTOSIS 1+; BAND NEUTROPHILS % (MANUAL) 0 % (0-8); BASOPHILS % (MANUAL) 0 % (0-2); EOSINOPHILS % (MANUAL) 3 % (0-3); HYPOCHROMASIA 1+; LYMPHOCYTES % (MANUAL) 18 % (20-45); NEUTROPHILS % (MANUAL) 67 % (45-75); PLATELET ESTIMATE ADEQUATE; PLATELET MORPHOLOGY NORMAL; TOTAL CELLS COUNTED 100
[2016-09-09 09:44] LABS: RETICULOCYTE COUNT 1.3 % (0.0-2.0)
[2016-09-09] MEDS: Carvedilol 12.5mg tab ORAL SCH ×2 (10:11→21:38)
[2016-09-09] MEDS: Dicyclomine 10mg Cap ORAL SCH ×3 (10:11→18:48)
[2016-09-09] MEDS: Heparin 5000 units/ml inj SUBQ SCH ×2 (10:15→21:40)
--- NOTE | 2016-09-09 10:49 | GI Progress Note ---
Assessment/Plan Problems: (1) Anemia ICD Codes: D64.9 - Anemia, unspecified SNOMED: 060394530 (2) Iron deficiency ICD Codes: E61.1 - Iron deficiency SNOMED: 08878305 (3) Chronic GERD ICD Codes: K21.9 - Gastro-esophageal reflux disease without esophagitis SNOMED: 14370369, 184066574 (4) Morbid obesity ICD Codes: E66.01 - Morbid (severe) obesity due to excess calories SNOMED: 858717137 Status: stable Status Narrative Discussed with Dr. Beckham. Assessment/Plan OB stool negative iron deficient >> venofer elevated LFTs EGD/colonoscopy in June per patient >> hiatal hernia symptomatic treatment monitor H&H, transfuse prn monitor LFTs, most likely from fatty infiltration of liver from morbid obesity fu hep panel fu abdominal US ppi fu labs Subjective Subjective abdominal pain resolved diarrhea resolved Objective Last 24 Hour Vital Signs Date Time Temp Pulse Resp B/P Pulse Ox O2 Delivery O2 Flow Rate FiO2 09/09/16 10:11 61 151/59 09/09/16 09:55 66 16 Room Air 09/09/16 04:00 97.5 67 18 125/58 95 Room Air 2.0 21 09/09/16 04:00 60 09/09/16 00:00 64 09/09/16 00:00 98.0 69 18 134/60 95 Room Air 2.0 21 09/08/16 21:20 70 137/55 09/08/16 20:00 97.7 60 18 137/55 95 Room Air 2.0 21 09/08/16 20:00 68 09/08/16 19:14 64 18 Room Air 09/08/16 16:10 60 15 95 Room Air 21 09/08/16 16:00 60 18 142/74 97 Room Air 09/08/16 16:00 61 09/08/16 12:00 60 19 144/59 97 Room Air 09/08/16 12:00 63 Intake and Output 09/08/16 09/09/16 19:00 07:00 Output Total 1000 ml 400 ml Balance -1000 ml -400 ml Output Urine Total 1000 ml 400 ml # Voids 3 Laboratory Tests Test 09/08/16 12:30 09/09/16 06:30 Stool Occult Blood Negative (NEGATIVE) White Blood Count 5.0 K/UL (4.8-10.8) Red Blood Count 4.12 M/UL (4.20-5.40) L Hemoglobin 10.5 G/DL (12.0-16.0) L Hematocrit 33.7 % (37.0-47.0) L Mean Corpuscular Volume 82 FL (80-99) Mean Corpuscular Hemoglobin 25.3 PG (27.0-31.0) L Mean Corpuscular Hemoglobin Concent 31.1 G/DL (32.0-36.0) L Red Cell Distribution Width 15.5 % (11.6-14.8) H Platelet Count 217 K/UL (150-450) Mean Platelet Volume 8.6 FL (6.5-10.1) Neutrophils (%) (Auto) % (45.0-75.0) Lymphocytes (%) (Auto) % (20.0-45.0) Monocytes (%) (Auto) % (1.0-10.0) Eosinophils (%) (Auto) % (0.0-3.0) Basophils (%) (Auto) % (0.0-2.0) Differential Total Cells Counted 100 Neutrophils % (Manual) 67 % (45-75) Lymphocytes % (Manual) 18 % (20-45) L Monocytes % (Manual) 12 % (1-10) H Eosinophils % (Manual) 3 % (0-3) Basophils % (Manual) 0 % (0-2) Band Neutrophils 0 % (0-8) Platelet Estimate Adequate Platelet Morphology Normal Hypochromasia 1+ Anisocytosis 1+ Erythrocyte Sedimentation Rate 58 MM/HR (0-30) H Reticulocyte Count 1.3 % (0.0-2.0) Prothrombin Time 10.8 SEC (9.30-11.50) Prothromb Time International Ratio 1.1 (0.9-1.1) Activated Partial Thromboplast Time 26 SEC (23-33) Sodium Level 142 mEQ/L (135-145) Potassium Level 4.0 mEQ/L (3.4-4.9) Chloride Level 96 mEQ/L (98-107) L Carbon Dioxide Level 29 mEQ/L (20-30) Anion Gap 17 (5-15) H Blood Urea Nitrogen 34 mg/dL (7-23) H Creatinine 1.8 mg/dL (0.5-0.9) H Estimat Glomerular Filtration Rate mL/min (>60) Glucose Level 208 mg/dL (74-106) H Calcium Level 9.5 mg/dL (8.6-10.2) Iron Level 29 ug/dL (37-145) L Total Iron Binding Capacity 378 ug/dL (250-400) Percent Iron Saturation 8 % (15-50) L Unsaturated Iron Binding 349 ug/dL (112-346) H Total Bilirubin 0.5 mg/dL (0.0-1.2) Aspartate Amino Transf (AST/SGOT) 63 U/L (5-40) H Alanine Aminotransferase (ALT/SGPT) 46 U/L (3-33) H Alkaline Phosphatase 177 U/L (35-104) H Lactate Dehydrogenase 234 U/L (135-230) H Troponin I < 0.30 ng/mL (<=0.30) Total Protein 7.1 g/dL (6.6-8.7) Albumin 3.5 g/dL (3.5-5.2) Globulin 3.6 g/dL Albumin/Globulin Ratio 0.9 (1.0-2.7) L Carcinoembryonic Antigen 1.3 ng/mL Vitamin B12 Level 854 pg/mL (211-946) Folate Pending Hepatitis A IgM Antibody Pending Hepatitis B Surface Antigen Pending Hepatitis B Core IgM Antibody Pending Hepatitis C Antibody Pending Height (Feet): 5 Height (Inches): 6.00 Weight (Pounds): 282 General Appearance: no apparent distress, morbidly obese Cardiovascular: normal rate Respiratory/Chest: no respiratory distress Abdominal Exam: normal bowel sounds, non tender, soft Extremities: normal range of motion Amaya Pond N.P. September 09, 2016 10:49
--- NOTE | 2016-09-09 14:18 | Diagnostic Imaging Report ---
Indication:Abdominal pain Technique: Grayscale and duplex Doppler imaging of the abdomen performed. Comparison: None Findings: Liver is enlarged measuring about 22 cm. Poorly is patent by Doppler. No biliary ductal dilatation is seen. Kidneys appear slightly echogenic. Gallbladder is grossly unremarkable. CBD is 5 mm. No ascites seen. Spleen is normal in size. The pancreas and aorta are not seen. Impression: Hepatomegaly. Borderline splenomegaly. Suspected medical renal disease. Please correlate clinically. Limited evaluation
--- NOTE | 2016-09-09 15:10 | Pulmonology Progress Note ---
Assessment/Plan Problems: (1) ACS (acute coronary syndrome) (2) Costochondritis (3) Chronic GERD (4) Hx of CABG (5) ICD (implantable cardioverter-defibrillator) in place (6) CAD (coronary artery disease) (7) Morbid obesity (8) CHF (congestive heart failure) Assessment/Plan improving some loose bowels anemia w/u in process Cardio consult appreciated Echo reviewed cardiac studies pending check stool of OB GI note reviewed. Subjective ROS Limited/Unobtainable: No Interval Events: doing better Constitutional: Reports: no symptoms HEENT: Repors: no symptoms Respiratory: Reports: no symptoms Allergies: Coded Allergies: ASPIRIN (Verified Allergy, Unknown, 09/13/08) CODEINE (Unverified Allergy, Unknown, 05/21/15) HYDROMORPHONE (Verified Allergy, Unknown, 05/21/15) MORPHINE (Unverified Allergy, Unknown, 05/21/15) PENICILLINS (Verified Allergy, Unknown, 09/13/08) Shrimp (Unverified Allergy, Unknown, 05/21/15) Uncoded Allergies: PENICILLIN (Allergy, Unknown, 05/21/15) Objective Last 24 Hour Vital Signs Date Time Temp Pulse Resp B/P Pulse Ox O2 Delivery O2 Flow Rate FiO2 09/09/16 13:02 97.2 65 17 152/68 97 Room Air 09/09/16 12:00 97.3 69 17 137/59 97 Room Air 09/09/16 12:00 63 09/09/16 10:11 61 151/59 09/09/16 09:55 66 16 Room Air 09/09/16 08:00 98.1 67 18 151/59 95 Room Air 2.0 21 09/09/16 08:00 66 09/09/16 04:00 97.5 67 18 125/58 95 Room Air 2.0 21 09/09/16 04:00 60 09/09/16 00:00 64 09/09/16 00:00 98.0 69 18 134/60 95 Room Air 2.0 21 09/08/16 21:20 70 137/55 09/08/16 20:00 97.7 60 18 137/55 95 Room Air 2.0 21 09/08/16 20:00 68 09/08/16 19:14 64 18 Room Air 09/08/16 16:10 60 15 95 Room Air 21 09/08/16 16:00 60 18 142/74 97 Room Air 09/08/16 16:00 61 Intake and Output 09/08/16 09/09/16 19:00 07:00 Output Total 1000 ml 400 ml Balance -1000 ml -400 ml Output Urine Total 1000 ml 400 ml # Voids 3 General Appearance: WD/WN HEENT: normocephalic, atraumatic Respiratory/Chest: chest wall non-tender, lungs clear Cardiovascular: normal peripheral pulses, normal rate Abdomen: normal bowel sounds, soft, non tender Extremities: no cyanosis, no clubbing 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 Laboratory Tests 09/09/16 06:30: White Blood Count 5.0, Red Blood Count 4.12L, Hemoglobin 10.5L, Hematocrit 33.7L , Mean Corpuscular Volume 82, Mean Corpuscular Hemoglobin 25.3L, Mean Corpuscular Hemoglobin Concent 31.1L, Red Cell Distribution Width 15.5H, Platelet Count 217, Mean Platelet Volume 8.6, Neutrophils (%) (Auto) , Lymphocytes (%) (Auto) , Monocytes (%) (Auto) , Eosinophils (%) (Auto) , Basophils (%) (Auto) , Differential Total Cells Counted 100, Neutrophils % ( Manual) 67, Lymphocytes % (Manual) 18L, Monocytes % (Manual) 12H, Eosinophils % (Manual) 3, Basophils % (Manual) 0, Band Neutrophils 0, Platelet Estimate Adequate, Platelet Morphology Normal, Hypochromasia 1+, Anisocytosis 1+, Erythrocyte Sedimentation Rate 58H, Reticulocyte Count 1.3, Prothrombin Time 10.8, Prothromb Time International Ratio 1.1, Activated Partial Thromboplast Time 26, Sodium Level 142, Potassium Level 4.0, Chloride Level 96L, Carbon Dioxide Level 29, Anion Gap 17H, Blood Urea Nitrogen 34H, Creatinine 1.8H, Estimat Glomerular Filtration Rate , Glucose Level 208H, Calcium Level 9.5, Iron Level 29L, Total Iron Binding Capacity 378, Percent Iron Saturation 8L, Unsaturated Iron Binding 349H, Total Bilirubin 0.5, Aspartate Amino Transf (AST/ SGOT) 63H, Alanine Aminotransferase (ALT/SGPT) 46H, Alkaline Phosphatase 177H, Lactate Dehydrogenase 234H, Troponin I < 0.30, Total Protein 7.1, Albumin 3.5, Globulin 3.6, Albumin/Globulin Ratio 0.9L, Carcinoembryonic Antigen 1.3, Vitamin B12 Level 854, Folate [Pending], Hepatitis A IgM Antibody [Pending], Hepatitis B Surface Antigen [Pending], Hepatitis B Core IgM Antibody [Pending], Hepatitis C Antibody [Pending] 09/09/16 10:15: Stool Occult Blood [Pending] Current Medications Medications (Trade) Dose Ordered Sig/Mark Anthony Route PRN Reason Start Time Stop Time Status Last Admin Dose Admin Acetaminophen (Tylenol) 650 mg Q4H PRN ORAL Mild Pain/Temp > 100.5 09/08/16 23:15 10/08/16 23:14 09/08/16 23:16 Albuterol/ Ipratropium (DuoNeb 0.5-3(2.5)mg/3ml) 3 ml EVERY 4 HOURS PRN HHN Shortness of Breath 09/06/16 23:15 09/11/16 23:14 09/08/16 16:09 Carvedilol (Coreg) 12.5 mg EVERY 12 HOURS ORAL 09/07/16 09:00 10/07/16 08:59 09/09/16 10:11 Dextrose (Dextrose 50%) STAT PRN IV Hypoglycemia 09/06/16 23:15 10/06/16 23:14 Dicyclomine HCl (Bentyl) 10 mg TID ORAL 09/09/16 09:00 10/09/16 08:59 09/09/16 12:58 Diphenhydramine HCl (Benadryl) 25 mg TID PRN ORAL Itching 09/08/16 22:30 10/08/16 22:29 09/08/16 23:16 Heparin Sodium (Porcine) (Heparin 5000 units/ml) 5,000 units EVERY 12 HOURS SUBQ 09/07/16 09:00 10/07/16 08:59 09/09/16 10:15 Insulin Aspart (NovoLOG) BEFORE MEALS AND HS SUBQ 09/07/16 06:30 10/07/16 06:29 09/09/16 12:22 Iron Sucrose/ Sodium Chloride (Venofer/Sodium Chloride) 60 ml @ 240 mls/hr BEDTIME IVPB 09/09/16 21:00 09/11/16 21:14 Methadone HCl (Methadone HCl) 5 mg Q8H PRN ORAL For Pain 09/07/16 07:45 09/14/16 07:44 Ondansetron HCl (Zofran) 4 mg Q6H PRN IVP Nausea & Vomiting 09/06/16 23:15 10/06/16 23:14 Pantoprazole (Protonix) 40 mg EVERY 12 HOURS ORAL 09/07/16 09:00 10/07/16 08:59 09/09/16 10:10 Polyethylene Glycol (Miralax) 17 gm DAILYPRN PRN ORAL Constipation 09/06/16 23:15 10/06/16 23:14 09/07/16 22:08 Pravastatin Sodium (Pravachol) 40 mg BEDTIME ORAL 09/07/16 21:00 10/07/16 20:59 09/08/16 21:20 Promethazine HCl 6.25 mg 6.25 mg Q6H PRN ORAL For Cough 09/09/16 01:00 10/09/16 00:59 Temazepam (Restoril) 15 mg HSPRN PRN ORAL Insomnia 09/06/16 23:15 09/13/16 23:14 09/07/16 22:08 RAMÓN VALE September 09, 2016 15:10
[2016-09-09] MEDS ORDERED: Loperamide 2mg cap ORAL PRN ×2 (16:00→19:00)
--- NOTE | 2016-09-09 18:10 | Cardiology Progress Note ---
Assessment/Plan Assessment/Plan 1. chf with preserved ef 2. Coronary artery disease status post coronary artery bypass grafting. 3. History of bioprosthetic valve replacement. 4. Paroxysmal atrial fibrillation. 5. renal insuf tele sinus has diarrhea her chf sx are better hope to dc home in am ef emily tejeda reprot noted trop normal icd history Subjective Cardiovascular: Denies: chest pain, lightheadedness Respiratory: Denies: shortness of breath Gastrointestinal/Abdominal: Reports: diarrhea, Denies: vomiting Genitourinary: Denies: burning, discharge Objective Last 24 Hour Vital Signs Date Time Temp Pulse Resp B/P Pulse Ox O2 Delivery O2 Flow Rate FiO2 09/09/16 16:27 97.3 60 17 137/57 Room Air 09/09/16 13:02 97.2 65 17 152/68 97 Room Air 09/09/16 12:00 97.3 69 17 137/59 97 Room Air 09/09/16 12:00 63 09/09/16 10:11 61 151/59 09/09/16 09:55 66 16 Room Air 09/09/16 08:00 98.1 67 18 151/59 95 Room Air 2.0 21 09/09/16 08:00 66 09/09/16 04:00 97.5 67 18 125/58 95 Room Air 2.0 21 09/09/16 04:00 60 09/09/16 00:00 64 09/09/16 00:00 98.0 69 18 134/60 95 Room Air 2.0 21 09/08/16 21:20 70 137/55 09/08/16 20:00 97.7 60 18 137/55 95 Room Air 2.0 21 09/08/16 20:00 68 09/08/16 19:14 64 18 Room Air General Appearance: alert Neck: supple Cardiovascular: normal rate, irregularly irregular Respiratory/Chest: lungs clear, normal breath sounds Abdomen: normal bowel sounds, non tender, soft Extremities: trace edema Intake and Output 09/08/16 09/09/16 19:00 07:00 Output Total 1000 ml 400 ml Balance -1000 ml -400 ml Output Urine Total 1000 ml 400 ml # Voids 3 Laboratory Tests Test 09/09/16 06:30 09/09/16 10:15 White Blood Count 5.0 K/UL (4.8-10.8) Red Blood Count 4.12 M/UL (4.20-5.40) L Hemoglobin 10.5 G/DL (12.0-16.0) L Hematocrit 33.7 % (37.0-47.0) L Mean Corpuscular Volume 82 FL (80-99) Mean Corpuscular Hemoglobin 25.3 PG (27.0-31.0) L Mean Corpuscular Hemoglobin Concent 31.1 G/DL (32.0-36.0) L Red Cell Distribution Width 15.5 % (11.6-14.8) H Platelet Count 217 K/UL (150-450) Mean Platelet Volume 8.6 FL (6.5-10.1) Neutrophils (%) (Auto) % (45.0-75.0) Lymphocytes (%) (Auto) % (20.0-45.0) Monocytes (%) (Auto) % (1.0-10.0) Eosinophils (%) (Auto) % (0.0-3.0) Basophils (%) (Auto) % (0.0-2.0) Differential Total Cells Counted 100 Neutrophils % (Manual) 67 % (45-75) Lymphocytes % (Manual) 18 % (20-45) L Monocytes % (Manual) 12 % (1-10) H Eosinophils % (Manual) 3 % (0-3) Basophils % (Manual) 0 % (0-2) Band Neutrophils 0 % (0-8) Platelet Estimate Adequate Platelet Morphology Normal Hypochromasia 1+ Anisocytosis 1+ Erythrocyte Sedimentation Rate 58 MM/HR (0-30) H Reticulocyte Count 1.3 % (0.0-2.0) Prothrombin Time 10.8 SEC (9.30-11.50) Prothromb Time International Ratio 1.1 (0.9-1.1) Activated Partial Thromboplast Time 26 SEC (23-33) Sodium Level 142 mEQ/L (135-145) Potassium Level 4.0 mEQ/L (3.4-4.9) Chloride Level 96 mEQ/L (98-107) L Carbon Dioxide Level 29 mEQ/L (20-30) Anion Gap 17 (5-15) H Blood Urea Nitrogen 34 mg/dL (7-23) H Creatinine 1.8 mg/dL (0.5-0.9) H Estimat Glomerular Filtration Rate mL/min (>60) Glucose Level 208 mg/dL (74-106) H Calcium Level 9.5 mg/dL (8.6-10.2) Iron Level 29 ug/dL (37-145) L Total Iron Binding Capacity 378 ug/dL (250-400) Percent Iron Saturation 8 % (15-50) L Unsaturated Iron Binding 349 ug/dL (112-346) H Total Bilirubin 0.5 mg/dL (0.0-1.2) Aspartate Amino Transf (AST/SGOT) 63 U/L (5-40) H Alanine Aminotransferase (ALT/SGPT) 46 U/L (3-33) H Alkaline Phosphatase 177 U/L (35-104) H Lactate Dehydrogenase 234 U/L (135-230) H Troponin I < 0.30 ng/mL (<=0.30) Total Protein 7.1 g/dL (6.6-8.7) Albumin 3.5 g/dL (3.5-5.2) Globulin 3.6 g/dL Albumin/Globulin Ratio 0.9 (1.0-2.7) L Carcinoembryonic Antigen 1.3 ng/mL Vitamin B12 Level 854 pg/mL (211-946) Folate Pending Hepatitis A IgM Antibody Pending Hepatitis B Surface Antigen Pending Hepatitis B Core IgM Antibody Pending Hepatitis C Antibody Pending Stool Occult Blood Pending JENIFER LONDON September 09, 2016 18:10
[2016-09-09] MEDS ORDERED: Iron Sucrose 100 MG in NS 55 ML IVPB SCH ×4 (21:00)
[2016-09-09] MEDS ORDERED: Miralax 17gm pkt ORAL PRN (21:00)
[2016-09-09] MEDS ORDERED: DuoNeb 0.5-3(2.5)mg/3ml neb HHN PRN (21:00)
--- NOTE | 2016-09-09 21:21 | Diagnostic Imaging Report ---
APPROVED REPORT CPT Code: 52005 Present Symptoms Lower Extremity Pain: Bilateral BILATERAL: Imaging reveals a patent deep venous system bilaterally. There is no evidence of thrombus within the femoral, popliteal or tibial segments. The greater saphenous veins are also within normal limits. Doppler indicates normal spontaneous flow within these segments.
[2016-09-10] VITALS: BP 144/62
[2016-09-10 04:08] VITALS: BP 143/59
[2016-09-10] MEDS: NovoLOG Insulin Flexpen SUBQ SCH ×2 (06:18→12:11)
[2016-09-10 07:49] LABS: BASOPHILS % (AUTO) 3.4 % (0.0-2.0); EOSINOPHILS % (AUTO) 5.7 % (0.0-3.0); LYMPHOCYTES % (AUTO) 15.5 % (20.0-45.0); MEAN CORPUSCULAR HEMOGLOBIN 24.9 PG (27.0-31.0); MEAN CORPUSCULAR HGB CONC 29.7 G/DL (32.0-36.0); MEAN CORPUSCULAR VOLUME 84 FL (80-99); MEAN PLATELET VOLUME 8.2 FL (6.5-10.1); MONOCYTES % (AUTO) 18.5 % (1.0-10.0); PLATELET COUNT 224 K/UL (150-450); RED BLOOD COUNT 4.21 M/UL (4.20-5.40); RED CELL DISTRIBUTION WIDTH 15.6 % (11.6-14.8); WHITE BLOOD COUNT 4.6 K/UL (4.8-10.8)
[2016-09-10 07:56] LABS: ALANINE AMINOTRANSFERASE 47 U/L (3-33); ALBUMIN/GLOBULIN RATIO 0.9 (1.0-2.7); ANION GAP 14 (5-15); ASPARTATE AMINO TRANSFERASE 76 U/L (5-40); CALCIUM 9.3 mg/dL (8.6-10.2); CARBON DIOXIDE 29 mEQ/L (20-30); CHLORIDE 99 mEQ/L (98-107); CREATININE 1.6 mg/dL (0.5-0.9); HEMOLYSIS 4; POTASSIUM 3.5 mEQ/L (3.4-4.9); SODIUM 142 mEQ/L (135-145); TOTAL PROTEIN 7.1 g/dL (6.6-8.7)
[2016-09-10 08:16] VITALS: BP 138/59
[2016-09-10] MEDS: Carvedilol 12.5mg tab ORAL SCH (08:43)
[2016-09-10] MEDS: Heparin 5000 units/ml inj SUBQ SCH (08:46)
[2016-09-10] MEDS ORDERED: Dicyclomine 10mg Cap ORAL SCH (09:00)
--- NOTE | 2016-09-10 09:24 | GI Progress Note ---
Assessment/Plan Problems: (1) Anemia ICD Codes: D64.9 - Anemia, unspecified SNOMED: 254465985 (2) Iron deficiency ICD Codes: E61.1 - Iron deficiency SNOMED: 77233988 (3) Chronic GERD ICD Codes: K21.9 - Gastro-esophageal reflux disease without esophagitis SNOMED: 03078471, 027314533 (4) Morbid obesity ICD Codes: E66.01 - Morbid (severe) obesity due to excess calories SNOMED: 159214867 (5) Hepatomegaly ICD Codes: R16.0 - Hepatomegaly, not elsewhere classified SNOMED: 69735094 (6) Fatty liver ICD Codes: K76.0 - Fatty (change of) liver, not elsewhere classified SNOMED: 234580158 Status: stable Status Narrative Discussed with Dr. Beckham. Assessment/Plan OB stool negative iron deficient >> venofer elevated LFTs EGD/colonoscopy in June per patient >> hiatal hernia abd U/S reviewed >> Hepatomegaly. Borderline splenomegaly. Suspected medical renal disease. ok for DC per GI standpoint symptomatic treatment monitor H&H, transfuse prn monitor LFTs, most likely from fatty infiltration of liver from morbid obesity fu hep panel ppi fu labs Subjective Subjective abdominal pain resolved diarrhea resolved no GI issues, c/o of cough and GARCIA Objective Last 24 Hour Vital Signs Date Time Temp Pulse Resp B/P Pulse Ox O2 Delivery O2 Flow Rate FiO2 09/10/16 08:43 61 138/59 09/10/16 08:16 96.6 61 21 138/59 97 Room Air 09/10/16 07:10 98.6 09/10/16 04:08 98.6 60 18 143/59 94 Room Air 09/10/16 00:00 97.9 64 18 144/62 96 Room Air 09/09/16 21:38 65 149/67 09/09/16 20:12 98.3 65 18 149/67 98 Room Air 09/09/16 19:30 62 16 Room Air 21 09/09/16 16:27 97.3 60 17 137/57 Room Air 09/09/16 16:00 66 09/09/16 13:02 97.2 65 17 152/68 97 Room Air 09/09/16 12:00 97.3 69 17 137/59 97 Room Air 09/09/16 12:00 63 09/09/16 10:11 61 151/59 09/09/16 09:55 66 16 Room Air Intake and Output 09/09/16 09/10/16 19:00 07:00 Intake Total 640 ml 360 ml Output Total 200 ml Balance 440 ml 360 ml Intake Oral 640 ml 300 ml IV Total 60 ml Output Urine Total 200 ml # Voids 2 # Bowel Movements 4 Laboratory Tests Test 09/09/16 10:15 09/10/16 07:20 Stool Occult Blood Pending White Blood Count 4.6 K/UL (4.8-10.8) L Red Blood Count 4.21 M/UL (4.20-5.40) Hemoglobin 10.5 G/DL (12.0-16.0) L Hematocrit 35.2 % (37.0-47.0) L Mean Corpuscular Volume 84 FL (80-99) Mean Corpuscular Hemoglobin 24.9 PG (27.0-31.0) L Mean Corpuscular Hemoglobin Concent 29.7 G/DL (32.0-36.0) L Red Cell Distribution Width 15.6 % (11.6-14.8) H Platelet Count 224 K/UL (150-450) Mean Platelet Volume 8.2 FL (6.5-10.1) Neutrophils (%) (Auto) 57.0 % (45.0-75.0) Lymphocytes (%) (Auto) 15.5 % (20.0-45.0) L Monocytes (%) (Auto) 18.5 % (1.0-10.0) H Eosinophils (%) (Auto) 5.7 % (0.0-3.0) H Basophils (%) (Auto) 3.4 % (0.0-2.0) H Sodium Level 142 mEQ/L (135-145) Potassium Level 3.5 mEQ/L (3.4-4.9) Chloride Level 99 mEQ/L (98-107) Carbon Dioxide Level 29 mEQ/L (20-30) Anion Gap 14 (5-15) Blood Urea Nitrogen 28 mg/dL (7-23) H Creatinine 1.6 mg/dL (0.5-0.9) H Estimat Glomerular Filtration Rate mL/min (>60) Glucose Level 220 mg/dL (74-106) H Calcium Level 9.3 mg/dL (8.6-10.2) Total Bilirubin 0.4 mg/dL (0.0-1.2) Aspartate Amino Transf (AST/SGOT) 76 U/L (5-40) H Alanine Aminotransferase (ALT/SGPT) 47 U/L (3-33) H Alkaline Phosphatase 170 U/L (35-104) H Total Protein 7.1 g/dL (6.6-8.7) Albumin 3.5 g/dL (3.5-5.2) Globulin 3.6 g/dL Albumin/Globulin Ratio 0.9 (1.0-2.7) L Height (Feet): 5 Height (Inches): 6.00 Weight (Pounds): 282 General Appearance: no apparent distress, alert, morbidly obese Cardiovascular: normal rate Respiratory/Chest: normal breath sounds, no respiratory distress Abdominal Exam: normal bowel sounds, non tender, soft Amaya Pond N.PMichelle September 10, 2016 09:24
[2016-09-10 11:48] VITALS: BP 111/56
[2016-09-10] MEDS ORDERED: NS 275ml ONE (13:44)
[2016-09-10] MEDS ORDERED: Tubing IV Secondary IV ONE ×2 (13:44)
--- NOTE | 2016-09-10 14:50 | Pulmonology Progress Note ---
Assessment/Plan Problems: (1) ACS (acute coronary syndrome) (2) Costochondritis (3) Chronic GERD (4) Hx of CABG (5) ICD (implantable cardioverter-defibrillator) in place (6) CAD (coronary artery disease) (7) Morbid obesity (8) CHF (congestive heart failure) Assessment/Plan improving anemia w/u in process Cardio consult appreciated Echo reviewed GI note reviewed. dc to rehab as requested Subjective ROS Limited/Unobtainable: No Constitutional: Reports: no symptoms HEENT: Repors: no symptoms Respiratory: Reports: no symptoms Allergies: Coded Allergies: ASPIRIN (Verified Allergy, Unknown, 09/13/08) CODEINE (Unverified Allergy, Unknown, 05/21/15) HYDROMORPHONE (Verified Allergy, Unknown, 05/21/15) MORPHINE (Unverified Allergy, Unknown, 05/21/15) PENICILLINS (Verified Allergy, Unknown, 09/13/08) Shrimp (Unverified Allergy, Unknown, 05/21/15) Uncoded Allergies: PENICILLIN (Allergy, Unknown, 05/21/15) Objective Last 24 Hour Vital Signs Date Time Temp Pulse Resp B/P Pulse Ox O2 Delivery O2 Flow Rate FiO2 09/10/16 11:48 97.2 60 20 111/56 95 Room Air 09/10/16 08:43 61 138/59 09/10/16 08:16 96.6 61 21 138/59 97 Room Air 09/10/16 08:10 68 16 Room Air 21 09/10/16 07:10 98.6 09/10/16 04:08 98.6 60 18 143/59 94 Room Air 09/10/16 00:00 97.9 64 18 144/62 96 Room Air 09/09/16 21:38 65 149/67 09/09/16 20:12 98.3 65 18 149/67 98 Room Air 09/09/16 19:30 62 16 Room Air 21 09/09/16 16:27 97.3 60 17 137/57 Room Air 09/09/16 16:00 66 Intake and Output 09/09/16 09/10/16 18:59 06:59 Intake Total 640 ml 360 ml Output Total 200 ml Balance 440 ml 360 ml Intake Oral 640 ml 300 ml IV Total 60 ml Output Urine Total 200 ml # Voids 2 # Bowel Movements 4 General Appearance: WD/WN HEENT: normocephalic Respiratory/Chest: chest wall non-tender, lungs clear Cardiovascular: normal peripheral pulses, normal rate Abdomen: normal bowel sounds, no organomegaly Skin: no rash 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 Laboratory Tests 09/10/16 07:20: White Blood Count 4.6L, Red Blood Count 4.21, Hemoglobin 10.5L, Hematocrit 35.2L , Mean Corpuscular Volume 84, Mean Corpuscular Hemoglobin 24.9L, Mean Corpuscular Hemoglobin Concent 29.7L, Red Cell Distribution Width 15.6H, Platelet Count 224, Mean Platelet Volume 8.2, Neutrophils (%) (Auto) 57.0, Lymphocytes (%) (Auto) 15.5L, Monocytes (%) (Auto) 18.5H, Eosinophils (%) (Auto ) 5.7H, Basophils (%) (Auto) 3.4H, Sodium Level 142, Potassium Level 3.5, Chloride Level 99, Carbon Dioxide Level 29, Anion Gap 14, Blood Urea Nitrogen 28H, Creatinine 1.6H, Estimat Glomerular Filtration Rate , Glucose Level 220H, Calcium Level 9.3, Total Bilirubin 0.4, Aspartate Amino Transf (AST/SGOT) 76H, Alanine Aminotransferase (ALT/SGPT) 47H, Alkaline Phosphatase 170H, Total Protein 7.1, Albumin 3.5, Globulin 3.6, Albumin/Globulin Ratio 0.9L RAMÓN VALE September 10, 2016 14:50
--- NOTE | 2016-09-11 21:13 | Discharge Summary ---
Discharge Summary Hospital Course Date of Admission September 06, 2016 at 21:37 Date of Discharge September 10, 2016 at 13:45 Admitting Diagnosis CHF exacerbation HPI Pawel Juarez is a 70 year old female who was admitted on September 06, 2016 at 21: 37 for Congestive Heart Failure Exacerbation Hospital Course [id number] Discharge Discharge Disposition Patient was discharged to SNF/Subacute Facility(03) Discharge Diagnoses: Génesis Li NP September 11, 2016 21:13
--- NOTE | 2016-09-12 05:41 | Discharge Summary 2 SIG ---
DATE OF ADMISSION: 09/06/2016 DATE OF DISCHARGE: 09/10/2016 CONSULTANTS: 1. Manuelito Beckham M.D. 2. Jim Atwood M.D. BRIEF HOSPITAL COURSE: The patient is a 70-year-old female with history of coronary artery disease, coronary artery bypass graft, ICD and diverticulosis, who was brought in by ambulance because of nausea and shortness of breath and had a pressure sensation in the chest. On evaluation at ED, laboratories showed elevated BNP of 2826 and chest x-ray showed pulmonary congestion. She was given Nitro paste and IV Lasix and was admitted to telemetry for further evaluation. Cardiology evaluation was done. EKG showed sinus rhythm and sinus bradycardia. Echocardiogram was done showed normal ejection fraction. Dr. Beckham was also consulted for evaluation of anemia and abnormal liver function tests. Stool OB was negative. Abdominal ultrasound showed hepatomegaly and borderline splenomegaly. Elevated LFTs were most likely from fatty infiltration of the liver and morbid obesity. Hepatitis panel was negative. She was given IV Venofer and was given proton pump inhibitors. She remained in sinus on telemetry and CHF symptoms were better. The patient was eventually discharged to the SNF. FINAL DIAGNOSES: 1. Acute congestive heart failure with preserved ejection fraction. 2. Coronary artery disease status post coronary artery bypass graft. 3. Bioprosthetic valve replacement. 4. Paroxysmal atrial fibrillation. 5. Costochondritis. 6. Gastroesophageal reflux disease. 7. Morbid obesity. 8. Fatty liver. 9. Iron deficiency anemia. Alvaro Hong M.D. I have been assigned to dictate discharge summary on this account and I was not involved in the patient's management. Génesis Li N.P. DR: APOLONIA JOB#: [id number] CC:
== END 2016-09-10 13:45 | DRG 292 ==
LOC: EMR 18:25 → 2E 21:37 → EDBEDREQ 21:44 → 4E 09-09 20:40
DX: I50.9 Heart failure, unspecified (principal); Z68.42 Body mass index [BMI] 45.0-49.9, adult; K76.0 Fatty (change of) liver, not elsewhere classified; I48.0 Paroxysmal atrial fibrillation; D50.9 Iron deficiency anemia, unspecified; I10 Essential (primary) hypertension; E11.9 Type 2 diabetes mellitus without complications; Z95.1 Presence of aortocoronary bypass graft; I25.10 Atherosclerotic heart disease of native coronary artery without angina pectoris; E66.01 Morbid (severe) obesity due to excess calories; K21.9 Gastro-esophageal reflux disease without esophagitis; Z88.0 Allergy status to penicillin; Z95.810 Presence of automatic (implantable) cardiac defibrillator; Z95.2 Presence of prosthetic heart valve; M94.0 Chondrocostal junction syndrome [Tietze]; E78.5 Hyperlipidemia, unspecified; J44.9 Chronic obstructive pulmonary disease, unspecified; K58.9 Irritable bowel syndrome, unspecified; K57.90 Diverticulosis of intestine, part unspecified, without perforation or abscess without bleeding
CPT/HCPCS: 36415; 71010; 76700; 80048; 80053; 80069; 81003; 82270; 82378; 82550; 82553; 82607; 82746; 82962; 83540; 83550; 83615; 83880; 84484; 85007; 85025; 85044; 85060; 85610; 85651; 85730; 86705; 86709; 86803; 87340; 93005; 93306; 93970; 94644; 94664; J1815; J7620

== ENCOUNTER 2017-02-15 15:56 | Emergency (ER) | payer MEDICARE, OTHER ==
[~2017-02-15] VITALS: Ht 162.6 cm; Wt 113.4 kg
[~2017-02-15 15:56] MED LIST changes: +JANUVIA25 MG ORAL; +LANTUS SOL100 UNIT/1 SUBQ; +MAPAP500 M2 PO; +MYCELEX TROCHE10 MG ORAL; +PACERONE200 MG ORAL
[2017-02-15] MEDS ORDERED: LIDOCAINE700 M1 TP (16:43)
[2017-02-15] MEDS ORDERED: ALLOPURINOL100 M1 ORAL (16:43)
[2017-02-15 16:50] VITALS: BP 132/61
--- NOTE | 2017-02-15 17:04 | Emergency Room Report ---
History of Present Illness General Chief Complaint: Pain Source: Patient, EMS Present Illness HPI Patient is 71-year-old female who presented after increased right hand pain. Patient gradual onset of symptoms. Patient reported having prior history of gouty arthritis. Patient reported having gradual onset of symptoms. She stated she did have recent prescription for Percocet. Patient stated that she had history of sleep apnea as well as cardiac disease. She is also diabetic. The patient is multiple medication allergies. Allergies: Coded Allergies: ASPIRIN (Verified Allergy, Unknown, 09/13/08) CODEINE (Unverified Allergy, Unknown, 05/21/15) HYDROMORPHONE (Verified Allergy, Unknown, 05/21/15) MORPHINE (Unverified Allergy, Unknown, 05/21/15) PENICILLINS (Verified Allergy, Unknown, 09/13/08) Shrimp (Unverified Allergy, Unknown, 05/21/15) Uncoded Allergies: PENICILLIN (Allergy, Unknown, 05/21/15) Patient History Past Medical History: see triage record Reviewed Nursing Documentation: PMH: Agreed, PSxH: Agreed Nursing Documentation-PMH Past Medical History: No History, Except For Hx Cardiac Problems: Yes - CABG Hx Hypertension: Yes Hx Asthma: Yes Hx COPD: Yes - sleep apnea Hx Diabetes: Yes Hx Cancer: No Hx Gastrointestinal Problems: Yes - gerd ,ibs,diverticulities Hx Dialysis: No Hx Neurological Problems: Yes Hx Cerebrovascular Accident: No Hx Peripheral Neuropathy: Yes - diabetic neuropathy on bilateral legs and rectum Hx Headaches: Yes Hx Numbness: Yes - left foot Hx Weakness: Yes Hx Fatigue: Yes Review of Systems All Other Systems: negative except mentioned in HPI Physical Exam Vital Signs Date Time Temp Pulse Resp B/P (MAP) Pulse Ox O2 Delivery O2 Flow Rate FiO2 02/15/17 15:50 97.9 68 20 128/71 99 Room Air Sp02 EP Interpretation: reviewed, normal General Appearance: normal inspection, alert, GCS 15, non-toxic, obese Head: atraumatic ENT: normal ENT inspection, hearing grossly normal, normal voice Neck: normal inspection, full range of motion, supple, no bony tend Respiratory: normal inspection, normal breath sounds, no retraction Cardiovascular #1: regular rate, rhythm, edema - bilateral Gastrointestinal: normal inspection, normal bowel sounds, non tender, soft, no guarding, no hernia Genitourinary: no CVA tenderness Musculoskeletal: back normal, normal range of motion, swelling - right hand, no erythema Neurologic: normal inspection, alert, oriented x3, responsive, 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 Differential diagnoses include was not limited to gout, cellulitis, fracture among others. Patient's benign exam and does not appear to require any further imaging or laboratory testing at this time. The patient has prior history of gout and this appears to be a flare of her chronic medical condition. The patient was noted to have prescription for narcotic pain medications. Patient was given lidocaine patch. She is advised to followup with her primary care physician. She was given prescription for allopurinol Last Vital Signs Date Time Temp Pulse Resp B/P (MAP) Pulse Ox O2 Delivery O2 Flow Rate FiO2 02/15/17 16:50 98.2 88 16 132/61 99 Room Air Status: improved Disposition: HOME, SELF-CARE Condition: Stable Scripts Lidocaine (Lidocaine) 1 Each Adh..patch 700 MG TP EVERY OTHER DAY for 1 Day, PATCH Prov: Alexandre Brown 02/15/17 Allopurinol* (ALLOPURINOL*) 100 Mg Tablet 100 MG ORAL DAILY for 7 Days, TAB Prov: Alexandre Brown 02/15/17 Referrals: NOT CHOSEN IPA/,REFERRING (PCP) Patient Instructions: Gout, [id number] Alexandre Brown Feb 15, 2017 17:04
== END 2017-02-15 17:00 | disposition home or self-care (01) ==
LOC: EDBD 15:56 → EMR 16:20
DX: M10.9 Gout, unspecified (principal); I10 Essential (primary) hypertension; E11.9 Type 2 diabetes mellitus without complications; Z95.1 Presence of aortocoronary bypass graft; J44.9 Chronic obstructive pulmonary disease, unspecified
CPT/HCPCS: 99284